=== PATIENT | male | born 1940 | race Caucasian/White ===

== ENCOUNTER 2021-09-19 08:08 | Day surgery (SDC) | payer MEDICARE, BC ==
[2021-09-19] VITALS (7 sets, daily range): BP systolic 121–138; BP diastolic 58–78
[~2021-09-19] VITALS: Ht 167.6 cm; Wt 79.6 kg
[~2021-09-19 08:08] MED LIST: LIDOcaine 1% 30ml preserv. free vial SQ STA
[2021-09-19] MEDS ORDERED: albumin 25% 100mL bottle x 1 IV PRN (08:45)
[2021-09-19] MEDS ORDERED: LISI40TA13 PO (09:21)
[2021-09-19] MEDS ORDERED: AMLO10TA13 PO (09:21)
[2021-09-19] MEDS ORDERED: SIMV-42 PO (09:21)
[2021-09-19] MEDS ORDERED: ASPI81TA52 PO (09:21)
[2021-09-19] MEDS ORDERED: OMEP-50 PO (09:21)
[2021-09-19] MEDS ORDERED: MULT-1085 PO (09:21)
[2021-09-19] MEDS ORDERED: METO25TA6 PO (09:21)
[2021-09-19 10:22] LABS: LDH,BODY FLUID 171 U/L; TOTAL PROTEIN,BODY FLUID 3.1 G/DL
== END 2021-09-19 10:05 | disposition home or self-care (01) ==
LOC: SSTAY O 08:08
PROVIDERS: ATTEND Radiology Diagnostic Radiology
DX: J90 Pleural effusion, not elsewhere classified (principal); J44.9 Chronic obstructive pulmonary disease, unspecified; E78.5 Hyperlipidemia, unspecified; I10 Essential (primary) hypertension; K21.9 Gastro-esophageal reflux disease without esophagitis; F17.290 Nicotine dependence, other tobacco product, uncomplicated; Z79.899 Other long term (current) drug therapy
CPT/HCPCS: 32555; 83615; 84157; 87070; J2001; 88108; 88305